=== PATIENT | male | born 1955 | race Caucasian/White ===

== ENCOUNTER → 2016-08-10 | Day surgery (SDC) | payer BC ==
[2016-08-10 12:17] VITALS: O2SAT 94
[2016-08-10 12:31] VITALS: BP 150/93; PULSE 67; RESP 16; TEMP 97.6
== END | disposition home or self-care (01) ==
LOC: SURG 10:32
PROVIDERS: ATTEND Surgery
DX: Z12.11 Encounter for screening for malignant neoplasm of colon (principal); Z86.010 Personal history of colon polyps
CPT/HCPCS: J2001; J2704

== ENCOUNTER 2017-05-15 06:55 | Day surgery (SDC) | payer BC ==
[2017-05-15] MEDS ORDERED: LIDOCAINE HCL 1% MPF SOL ONE (07:14)
[2017-05-15] MEDS ORDERED: PROPOFOL 500 MG/50 ML EMU IV ONE (07:14)
[2017-05-15] MEDS ORDERED: FENTANYL 100MCG/2ML SOL ONE (07:14)
[2017-05-15] MEDS: BUPIVACAINE/EPI 0.5% 10 ML SOL INFIL ONE ×2 (08:08→08:41)
[2017-05-15 09:19] VITALS: RESP 20
[2017-05-15 09:28] VITALS: TEMP 97
[2017-05-15 09:36] VITALS: BP 150/84; PULSE 61; O2SAT 98
[2017-05-15] MEDS ORDERED: CEFAZOLIN SODIUM 1 GM PDS ONE (09:37)
== END 2017-05-15 10:45 | disposition home or self-care (01) ==
LOC: SURG 06:55
PROVIDERS: ATTEND Surgery
DX: K40.90 Unilateral inguinal hernia, without obstruction or gangrene, not specified as recurrent (principal)
CPT/HCPCS: 49505; J0690; J2001; J2704; J3010